=== PATIENT | female | born 1990 | race Caucasian/White ===

== ENCOUNTER 2017-02-03 06:11 | Day surgery (SDC) | payer OTHER ==
--- NOTE | 2017-01-23 19:24 | HP ---
HISTORY AND PHYSICAL: DATE OF ADMISSION/SURGERY: 02/03/17 DATE OF OFFICE VISIT: 01/23/17 SURGEON: Kathy Means MD * (DICTATED BY MARYELLEN JAMIE) PROCEDURE: Right knee arthroscopy with medial plica excision, possible synovectomy, possible partial meniscectomy. CHIEF COMPLAINT: Right knee pain. HISTORY OF PRESENT ILLNESS: Ms. Zhao is a 26-year-old female with complaints of right knee pain. She injured her knee back in April 2015. It was a work - related injury. She continues to have pain and has failed conservative management. She has elected to proceed with surgery with Dr. Means, which is scheduled on 02/03/17. PAST MEDICAL HISTORY: Denies. PAST SURGICAL HISTORY: Cholecystectomy, spleen removal, tonsillectomy. CURRENT MEDICATIONS: Eeww-hty-ojvwgid Tylenol as needed. ALLERGIES: To CODEINE, which causes hives. FAMILY HISTORY: Heart disease. SOCIAL HISTORY: She is a 26-year-old female. She lives alone. She works at [employer]. She does not smoke or use drugs. Uses an occasional alcohol. REVIEW OF SYSTEMS: A complete 14-point review of systems was reviewed with the patient. It was all was negative or noncontributory. PHYSICAL EXAMINATION GENERAL: She is well developed, well nourished, in no acute distress. She is alert and oriented x3. Pleasant mood and appropriate affect. VITAL SIGNS: She stands 5 feet 6 inches tall, weighs 120 pounds. Her blood pressure is 102/66, her heart rate is 74. HEENT: Normocephalic, atraumatic. NECK: Supple. PULMONARY: Lungs are clear to auscultation bilaterally. CARDIO: Regular rate and rhythm. Strong S1, S2. ABDOMEN: Soft, nontender, nondistended. NEUROLOGICAL: Cranial nerves II through XII are intact. MUSCULOSKELETAL: Right lower extremity, skin is intact. There are no open wounds or abrasions. She has 0 to 135 degrees range of motion. No varus or valgus instability. She has tenderness to palpation along the medial parapatellar region and there is a mild joint effusion. Distally, she is neurovascularly intact. DIAGNOSTIC STUDIES: An MRI from an outside facility shows some patella ange with a thickened medial plica. ASSESSMENT AND PLAN: Ms. Zhao is a 26-year-old female with continued complaints of right knee pain. She has failed conservative management and has elected to proceed with a right knee arthroscopy with medial plica excision, possible synovectomy, possible partial meniscectomy. The surgery is scheduled for 02/03/[address] Means discussed the risks and benefits of the surgery at today's visit and all of her questions were answered. She will see Dr. Means back in 2 weeks after the surgery. MARYELLEN JAIME [id number]/[facility] #: [id number] MTDDeanna
[~2017-02-03 06:11] MED LIST: Buffered Lidocaine 0.9% SYRIN* 5 ML/SYR SYRINGE INTRADERM ONE
[2017-02-03] MEDS ORDERED: ceFAZolin 2 GM PREMIX (*) 50 ML IVPB ONE (06:17)
[2017-02-03] MEDS ORDERED: Buffered Lidocaine 0.9% SYRIN* 5 ML/SYR SYRINGE ONE (06:17)
[2017-02-03] MEDS ORDERED: methylPREDNISolone ACETATE 80* 80 MG/ML 1 ML VIAL ONE (07:16)
[2017-02-03] MEDS ORDERED: Bupivacaine 0.5% SDV PF* 30 ML VIAL ONE (07:17)
[2017-02-03] MEDS ORDERED: EPINEPHrine AMP 1 MG/ML ONE (07:17)
[2017-02-03] MEDS ORDERED: Sodium Citrate/Citric Acid* 15 ML UDC ONE (07:23)
[2017-02-03] MEDS ORDERED: Lidocaine 2% PF * 5 ML VIAL ONE (07:41)
[2017-02-03] MEDS ORDERED: Propofol* 10 MG/ML 20 ML BTL IV PUSH ONE (07:41)
[2017-02-03] MEDS ORDERED: fentaNYL* 50 MCG/ML 2 ML VIAL (100 MCG VIAL) ONE ×2 (07:41→08:39)
[2017-02-03] MEDS ORDERED: Ketorolac INJ* 30 MG/ML 1 ML VIAL IV PRN (08:00)
[2017-02-03] MEDS ORDERED: Ondansetron INJ* 2 MG/ML VIAL IV PRN (08:00)
[2017-02-03] MEDS ORDERED: fentaNYL* 50 MCG/ML 2 ML VIAL (100 MCG VIAL) IV PRN (08:00)
[2017-02-03] MEDS ORDERED: Ketorolac INJ* 30 MG/ML 1 ML VIAL ONE (08:39)
[2017-02-03] MEDS ORDERED: oxyCODONE/Acetamin 5/325 MG* TAB ONE (09:19)
[2017-02-03 10:24] VITALS: BP 109/67
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
== END 2017-02-03 10:25 | disposition home or self-care (01) ==
LOC: OR 06:11
PROVIDERS: ATTEND Orthopaedic Surgery Adult Reconstructive Orthopaedic Surgery
DX: M67.51 Plica syndrome, right knee (principal)
CPT/HCPCS: 81025; A9270-GY; J0171; J0690; J1040; J1885; J2704; J3010